=== PATIENT | female | born 1980 | race Caucasian/White ===

== ENCOUNTER 2023-04-17 04:04 | Emergency (ER) | payer MEDICAID ==
[~2023-04-17] VITALS: Ht 167.6 cm; Wt 75.0 kg
[~2023-04-17 04:04] MED LIST: FAMO-287 MT; OMEP40CA20 PO; ONDA4TAB11 PO; SUCR1TAB PO; TOPUD PO
[2023-04-17 04:16] VITALS: TEMP 98.2; O2SAT 100
[2023-04-17] MEDS ORDERED: ONDANSETRON HCL 4MG/2ML INJ IV STA (06:39)
[2023-04-17] MEDS ORDERED: FAMOTIDINE 20MG/2ML VIAL IV STA (06:39)
[2023-04-17] MEDS ORDERED: SODIUM CHLORIDE 0.9% 1,000 ML IV ONE (06:45)
[2023-04-17] MEDS ORDERED: MORPHINE SULFATE 4 MG/ML CPJ (NOT FOR IM USE) IV ONE (07:00)
[2023-04-17 08:01] VITALS: RESP 18
[2023-04-17 08:05] LABS: BASOPHILS % 0.6 % (0.0-2.0); EOSINOPHILS % 1.1 % (0.0-5.0); HEMOGLOBIN. 13.9 g/dL (12.0-16.0); LYMPHOCYTES % 29.6 % (20.0-50.0); MEAN CORPUSCULAR HGB CONC 33.8 g/dL (31.0-37.0); MEAN CORPUSCULAR VOLUME 85.6 fL (81.0-99.0); MEAN PLATELET VOLUME 8.6 fl (7.4-10.4); MONOCYTES % 12.3 % (2.0-8.0); NEUTROPHILS % 56.4 % (40.0-76.0); PLATELET 351 x1000/uL (130-400); RED BLOOD CELL COUNT 4.79 mill/uL (4.2-5.4); WHITE BLOOD COUNT 4.9 x1000/uL (4.5-11.0)
[2023-04-17 08:53] LABS: HCG SCREEN NEGATIVE
[2023-04-17 08:57] LABS: ALANINE AMINOTRANSFERASE 8 IU/L (10-49); ASPARTATE AMINOTRANSFERASE 12 IU/L (<34); BILIRUBIN TOTAL 0.4 mg/dL (0.1-1.0); CALCIUM 9.1 mg/dL (8.7-10.4); CARBON DIOXIDE 29 mEq/L (21-32); CHLORIDE 100 mEq/L (98-107); CREATININE 0.6 mg/dL (0.6-1.0); GLUCOSE 84 mg/dL (70-105); POTASSIUM 3.5 mEq/L (3.5-5.1); SODIUM 136 mEq/L (136-145); UREA NITROGEN BLOOD 8 mg/dL (9-23)
[2023-04-17 08:58] LABS: ETHANOL BLOOD < 10 mg/dL (<10)
[2023-04-17 09:54] VITALS: BP 124/82; PULSE 68
[2023-04-17] MEDS ORDERED: OMEP40CA20 PO (11:11)
[2023-04-17] MEDS ORDERED: SUCR1TAB PO (11:11)
[2023-04-17] MEDS ORDERED: PANTOPRAZOLE SODIUM 40 MG/VIAL IV NR (11:15)
[2023-04-17] MEDS ORDERED: SUCRALFATE 1G TABLET PO NR (11:15)
== END 2023-04-17 11:42 | disposition home or self-care (01) ==
LOC: ER 04:04
DX: K27.1 Acute peptic ulcer, site unspecified, with perforation (principal); Z90.49 Acquired absence of other specified parts of digestive tract
CPT/HCPCS: 80053; 80320; 84703; 83690; 85025; 85610; 36415; 74176; 96361; 96374; 96375; 99285; J3490; J2405; C9113; J2270; J7030; Z7610 ×2; G0480

== ENCOUNTER 2023-11-22 01:43 | Emergency (ER) | payer MEDICAID ==
[~2023-11-22] VITALS: Ht 165.1 cm; Wt 100.0 kg
[2023-11-22 01:48] VITALS: BP 104/60; PULSE 74; RESP 16; O2SAT 99
[2023-11-22 02:30] VITALS: TEMP 98.4
[2023-11-22] MEDS: ACETAMINOPHEN 325MG TABLET PO ONE (02:30)
[2023-11-22] MEDS: FLUORESCEIN SODIUM 1MG/STRIP LEFTEYE ONE (02:42)
[2023-11-22] MEDS: TETRACAINE 0.5% OPHTH DROPS 4ML LEFTEYE ONE (02:42)
[2023-11-22] MEDS ORDERED: ACET-2708 MT (05:41)
== END 2023-11-22 06:04 | disposition home or self-care (01) ==
LOC: ER 01:43
DX: S05.12XA Contusion of eyeball and orbital tissues, left eye, initial encounter (principal); S09.90XA Unspecified injury of head, initial encounter; Y04.0XXA Assault by unarmed brawl or fight, initial encounter; Y93.89 Activity, other specified; Y92.89 Other specified places as the place of occurrence of the external cause; Y99.8 Other external cause status
CPT/HCPCS: 70486; 81025; 99284

== ENCOUNTER 2024-04-01 11:03 | Emergency (ER) | payer MEDICAID ==
[~2024-04-01] VITALS: Ht 175.3 cm; Wt 69.0 kg
[~2024-04-01 11:03] MED LIST changes: +ACET-2708 MT; +ONDA-239 PO; -ONDA4TAB11 PO
[2024-04-01 11:05] VITALS: O2SAT 98
[2024-04-01] MEDS: ONDANSETRON 4MG ODT PO STA (11:53)
[2024-04-01 12:01] LABS: HEMATOCRIT. 35.3 % (36.0-48.0); HEMOGLOBIN. 11.5 g/dL (12.0-16.0); MEAN CORPUSCULAR HEMOGLOBIN 27.4 pg (28.0-32.0); MEAN CORPUSCULAR HGB CONC 32.5 g/dL (31.0-37.0); MEAN CORPUSCULAR VOLUME 84.3 fL (81.0-99.0); PLATELET 419 x1000/uL (130-400); RED BLOOD CELL COUNT 4.18 mill/uL (4.2-5.4); RED CELL DISTRIBUTION WIDTH 16.9 % (11.6-14.6); WHITE BLOOD COUNT 4.8 x1000/uL (4.5-11.0)
[2024-04-01 12:02] LABS: DIFFERENTIAL COMMENT 1
[2024-04-01 12:11] LABS: HCG SCREEN NEGATIVE
[2024-04-01 12:14] LABS: CHLORIDE 109 mEq/L (98-107); POTASSIUM 4.3 mEq/L (3.5-5.1); SODIUM 141 mEq/L (136-145)
[2024-04-01 12:15] LABS: CARBON DIOXIDE 28 mEq/L (21-32)
[2024-04-01 12:20] LABS: CREATININE 0.8 mg/dL (0.6-1.0)
[2024-04-01 12:21] LABS: GLUCOSE 92 mg/dL (70-105); UREA NITROGEN BLOOD 21 mg/dL (9-23)
[2024-04-01 12:22] LABS: ALANINE AMINOTRANSFERASE 21 IU/L (10-49); ALBUMIN 3.9 g/dL (3.2-4.8); ASPARTATE AMINOTRANSFERASE 17 IU/L (<34)
[2024-04-01 12:23] LABS: BILIRUBIN TOTAL 0.2 mg/dL (0.1-1.0); PROTEIN TOTAL 7.3 g/dL (6.0-8.3)
[2024-04-01 12:28] LABS: BILIRUBIN DIRECT < 0.1 mg/dL (<=3.0)
[2024-04-01 12:29] LABS: PLATELET ESTIMATE SLIGHTLY INCREASED
[2024-04-01] MEDS ORDERED: DICY20TA2 MT (12:49)
[2024-04-01 12:56] VITALS: BP 122/69; PULSE 84; RESP 16; TEMP 36.55848; O2SAT 98
== END 2024-04-01 13:24 | disposition home or self-care (01) ==
LOC: ER 11:12
DX: R10.9 Unspecified abdominal pain (principal); I10 Essential (primary) hypertension; E11.9 Type 2 diabetes mellitus without complications; Z79.899 Other long term (current) drug therapy
CPT/HCPCS: 99283; 80076; 80048; 84703; 83690; 85025; 36415; Q0162